=== PATIENT | female | born 1985 | race African-American/Black ===

== ENCOUNTER 2016-07-28 21:07 | Emergency (ER) | payer OTHER ==
[~2016-07-28] VITALS: Ht 154.9 cm; Wt 63.5 kg
[2016-07-28 21:12] VITALS: BP 107/75
[2016-07-28] MEDS ORDERED: BACTROBAN NASAL1 GM NASAL (22:03)
[2016-07-28] MEDS ORDERED: KEFLEX500 MG PO (22:03)
[2016-07-28] MEDS ORDERED: MOBIC15 MG PO (22:03)
== END 2016-07-28 22:09 | disposition home or self-care (01) ==
LOC: ER 21:07
DX: L03.032 Cellulitis of left toe (principal); L03.031 Cellulitis of right toe; J45.909 Unspecified asthma, uncomplicated; F17.210 Nicotine dependence, cigarettes, uncomplicated; Z88.5 Allergy status to narcotic agent; Z88.6 Allergy status to analgesic agent